=== PATIENT | female | born 1990 | race Caucasian/White ===

== ENCOUNTER 2019-11-05 11:03 | Inpatient (IN) ==
[2019-11-05 11:43] LABS: URINE SOURCE VOIDED
[2019-11-05 11:51] LABS: COLOR YELLOW; GLUCOSE URINE NEGATIVE (NEGATIVE); TURBIDITY URINE CLEAR (CLEAR)
[2019-11-05 11:52] LABS: BILIRUBIN URINE NEGATIVE (NEGATIVE); BLOOD URINE TRACE (NEGATIVE); KETONE URINE NEGATIVE (NEGATIVE); NITRITE URINE NEGATIVE (NEGATIVE); PH URINE 6.5; PROTEIN URINE NEGATIVE (NEGATIVE); UROBILINOGEN URINE NORMAL (NORMAL)
[2019-11-05 11:53] LABS: LEUKOCYTES URINE SMALL (NEGATIVE)
[2019-11-05] MEDS ORDERED: PEPCID PO ONE (12:43)
[2019-11-05] MEDS ORDERED: PEPCID IV PRN (12:43)
[2019-11-05] MEDS ORDERED: STADOL IV PRN (12:43)
[2019-11-05] MEDS ORDERED: KEFZOL 1 GM/D5W 1 GM/50 ML IVPB IV PRN (12:43)
[2019-11-05] MEDS ORDERED: PEPCID PO PRN (12:43)
[2019-11-05] MEDS ORDERED: TYLENOL PO PRN (12:43)
[2019-11-05] MEDS ORDERED: AMPICILLIN 2 GM in NS 100 ML IV ONE (12:43)
[2019-11-05] MEDS ORDERED: REGLAN PO ONE (12:43)
[2019-11-05] MEDS ORDERED: ZOFRAN IV PRN (12:43)
[2019-11-05] MEDS ORDERED: SODIUM CHLORIDE 0.9% INJ SCH (12:45)
[2019-11-05] MEDS ORDERED: PITOCIN 30 UNITS/NS 30 UNIT/500 ML IV.SOLN IV SCH ×2 (12:45→20:45)
[2019-11-05] MEDS: LR 1,000 ML IV SCH ×2 (13:23→17:42)
[2019-11-05 13:53] LABS: BASO# 0.02 X1000 (0.0-0.2); BASO% 0.3 % (0.0-0.8); EOS# 0.05 X1000 (0.0-0.7); EOS% 0.8 % (0.0-10.0); HEMATOCRIT 32.8 % (37.0-47.0); HEMOGLOBIN 10.3 g/dL (12.0-16.0); LYMPH# 0.87 X1000 (1.2-3.4); MCH 28.2 PG (27-31); MCHC 31.4 g/dL (33-37); MCV 89.9 FL (81-99); MONO# 0.58 X1000 (0.11-0.59); MONO% 9.3 % (1.7-9.3); MPV 10.3 FL (7.4-10.4); NEUT# 4.69 X1000 (1.4-6.5); NEUT% 75.6 % (42.2-75.2); PLT 271 X1000 (130-400); RBC 3.65 XMIL (4.2-5.4); WBC 6.21 X1000 (4.8-10.8)
[2019-11-05 14:57] LABS: UR AMPHETAMINES QUAL NONE DETECTED (NONE DETECT); UR BARBITUATES QUAL NONE DETECTED (NONE DETECT); UR BENZODIAZEPIN QUAL NONE DETECTED (NONE DETECT); UR CANNABINOIDS QUAL NONE DETECTED (NONE DETECT); UR COCAINE QUAL NONE DETECTED (NONE DETECT); UR METHADONE QUAL NONE DETECTED (NONE DETECT); UR OPIATES QUAL NONE DETECTED (NONE DETECT); UR OXYCODONE QUAL NONE DETECTED (NONE DETECT); UR PCP QUAL NONE DETECTED (NONE DETECT)
--- NOTE | 2019-11-05 15:20 | HISTORY AND PHYSICAL ---
HISTORY OF PRESENT ILLNESS: Ms. Lam is a 29-year-old -0-1-2 at 37 weeks and 6 days who presents to Labor and Delivery with complaint of leakage of fluid, ruptured membranes. The patient reports rupturing membranes at 10:30 this morning. Describes clear fluid. Reports good movement. Denies contractions or vaginal bleeding. Current uncomplicated. No complications noted. ALLERGIES: No known drug allergies. MEDICATIONS: vitamins. PAST MEDICAL HISTORY: None. PAST SURGICAL HISTORY: None. OBSTETRICAL HISTORY: G3, P2-0-1-2, 1 prior SAB, 2 prior full-term vaginal deliveries. No complications in prior vaginal deliveries, largest baby 7 pounds 11 ounces. [employer] HISTORY: LMP 02/12/2019. Denies STD exposure. Last Pap smear April 2018, negative for intraepithelial lesions or malignancies. Menarche age 11. SOCIAL HISTORY: Denies tobacco, alcohol, or drug use. FAMILY HISTORY: Father at age 71, stroke and myocardial infarct. PHYSICAL EXAMINATION: VITAL SIGNS: Temperature 97.3 degrees Fahrenheit, pulse rate 110, respiration rate 18, blood pressure 100/64, O2 saturation 95% on room air. Weight 176 pounds, height 5 feet 1 inch tall, body mass index 33.3 kg/m2. GENERAL: No acute distress. Alert, awake, oriented x3. CARDIOVASCULAR: Regular rate and rhythm. Positive S1, S2. RESPIRATORY: Clear to auscultation bilaterally. Negative rhonchi rales or wheezing. ABDOMEN: Gravid, nontender to palpation. Soft. EXTREMITIES: No calf tenderness. There is +1 edema. STERILE VAGINAL EXAM: 1 cm dilated, 70% effaced, -3 station. LABORATORY DATA: membrane rupture positive. GBS positive. ASSESSMENT: Ms. Neelam Lam is a 29-year-old G3, P2-0-1-2 at 37 weeks and 6 days who presents to Labor and Delivery with premature rupture of membrane, not in active labor. PLAN: 1. Admit to Labor and Delivery. 2. Obtain routine labor labs. 3. Continuous electronic monitoring. 4. IV ampicillin for GBS prophylaxis. 5. Patient counseled on risks, benefits, alternatives of procedure. Risks, not limited to infection, bleeding, vaginal laceration emergency delivery. The patient understands risks and agrees to procedure. 6. Estimated weight 7 and a half pounds. 7. Anticipate vaginal delivery.
[2019-11-05] MEDS ORDERED: FENTANYL-BUPIV-NS 500 MCG-0.125% 250 ML EPIDURAL PRN (17:39)
[2019-11-05] MEDS ORDERED: NAROPIN 0.2% INJ ONE (17:45)
[2019-11-05] MEDS ORDERED: FENTANYL IV ONE (17:45)
[2019-11-05] MEDS: AMPICILLIN 1 GM in NS 50 ML IV SCH (17:47)
[2019-11-05] MEDS ORDERED: PERI MEDS (DERMOPLAST/NUPERCAINAL/TUCKS) MISC PRN (20:41)
[2019-11-05] MEDS ORDERED: MINERAL OIL PO PRN (20:41)
[2019-11-05] MEDS ORDERED: BOOSTRIX VACCINE IM ONE (20:41)
[2019-11-05] MEDS ORDERED: ATARAX PO PRN (20:41)
[2019-11-05] MEDS ORDERED: MOTRIN PO PRN (20:41)
[2019-11-05] MEDS ORDERED: AMBIEN PO PRN (20:41)
[2019-11-05] MEDS ORDERED: HYDROXYZINE IM PRN (20:41)
[2019-11-05] MEDS ORDERED: NORCO-5 PO PRN (20:41)
[2019-11-05] MEDS ORDERED: M-M-R II VACCINE SUBQ ONE (20:41)
[2019-11-05] MEDS ORDERED: BENADRYL PO PRN (20:41)
[2019-11-05] MEDS ORDERED: CYTOTEC PO PRN (20:41)
[2019-11-05] MEDS ORDERED: BENADRYL IV PRN (20:41)
[2019-11-05] MEDS ORDERED: PITOCIN IM PRN (20:41)
[2019-11-05] MEDS ORDERED: XYLOCAINE-MPF 1% INJ PRN (20:41)
[2019-11-05] MEDS ORDERED: PITOCIN 20 UNITS/NS 20 UNITS/1,000 ML IV.SOLN IV SCH (20:45)
[2019-11-06] MEDS: AMPICILLIN 1 GM in NS 50 ML IV SCH ×2 (03:52→03:53)
[2019-11-06] MEDS: PERICOLACE PO SCH ×2 (03:53→23:27)
[2019-11-06 07:52] LABS: BASO# 0.01 X1000 (0.0-0.2); BASO% 0.1 % (0.0-0.8); HEMATOCRIT 31.7 % (37.0-47.0); HEMOGLOBIN 9.9 g/dL (12.0-16.0); LYMPH# 1.25 X1000 (1.2-3.4); LYMPH% 14.3 % (20.5-51.1); MCH 28.4 PG (27-31); MCHC 31.2 g/dL (33-37); MCV 90.8 FL (81-99); MONO# 0.49 X1000 (0.11-0.59); MONO% 5.6 % (1.7-9.3); MPV 10.5 FL (7.4-10.4); NEUT# 6.99 X1000 (1.4-6.5); PLT 231 X1000 (130-400); RBC 3.49 XMIL (4.2-5.4); RDW 11.9 % (11.5-14.5); WBC 8.74 X1000 (4.8-10.8)
--- NOTE | 2019-11-06 11:32 | OB/GYN PROGRESS NOTE ---
- Subjective G3 now P3 - Doing well, no c/o PPD #1 S/P . Ambulating and voiding without difficulty. NO CP or SOB. NO Lightheadedness or dizziness. Tolerating regular diet. Lochia minimal per patient. . OB Physical Exam Vital Signs - 8 hr 11/06/19 08:00 Temperature 97 F L Pulse Rate 89 Respiratory Rate 16 Blood Pressure 110/89 O2 Sat by Pulse Oximetry 99 - CONSTITUTIONAL General Appearance: appears well, alert, no apparent distress - RESPIRATORY Respiratory: lungs clear, normal breath sounds - CARDIOVASCULAR Cardiovascular: normal peripheral pulses, regular rate, rhythm - CHEST (BREASTS) Chest/Breast: deferred - GASTROINTESTINAL (ABDOMEN) Abdominal Exam: normal bowel sounds, non tender, soft, other (uterus firm below umbilicus.) - GENITOURINARY Female Genitalia/Pelvic Exam: external exam normal, other (Pad with minimal blood on it.) - MUSCULOSKELETAL Extremity: non-tender, no pedal edema, no calf tenderness - PSYCHIATRIC Psych/Mental Status: normal mood/affect, oriented x 3 Active Medications Generic Name Dose Route Start Last Admin Trade Name Freq PRN Reason Stop Dose Admin Acetaminophen 650 mg 11/05/19 12:43 Tylenol PO Q4-6H PRN PRN Headache Hydrocodone Bitart/Acetaminophen 1 each 11/05/19 20:41 [place]-5 PO Q3-4H PRN PRN Pain (1-6 on Pain Scale) Benzocaine 1 each 11/05/19 20:41 Nela Meds (Dermoplast/Nupercainal/Tucks) MISC 3-4XDAY PRN PRN episiotomy/hemorrhoids Butorphanol Tartrate 2 mg 11/05/19 12:43 Stadol IV PRN PRN Pain Diphenhydramine HCl 12.5 mg 11/05/19 20:41 Benadryl IV Q4H PRN PRN Itching Diphenhydramine HCl 25 mg 11/05/19 20:41 Benadryl PO Q4H PRN PRN Itching Famotidine 40 mg 11/05/19 12:43 Pepcid PO Q12H PRN PRN GI upset or indigestion Famotidine 20 mg 11/05/19 12:43 Pepcid IV Q12H PRN PRN GI upset or indigestion Hydroxyzine HCl 50 mg 11/05/19 20:41 Atarax PO Q3-4H PRN PRN Nausea Hydroxyzine HCl 50 mg 11/05/19 20:41 Hydroxyzine IM Q3-4H PRN PRN Nausea Ampicillin Sodium 1 gm/ Sodium 50 mls @ 100 mls/hr 11/05/19 16:50 11/06/19 03:53 Chloride IV Not Given Q4H ISAI Lactated Ringer's 1,000 mls @ 0 mls/hr 11/05/19 12:45 11/05/19 17:42 Lr IV 999 mls/hr .Q0M ISAI Administration As Directed Oxytocin/Sodium Chloride 30 unit in 500 mls @ 0 mls/hr 11/05/19 12:45 11/05/19 13:35 Pitocin 30 Units/Ns IV 2 mls/hr .Q0M ISAI Administration As Directed Cefazolin Sodium/Dextrose 1 gm in 50 mls @ 100 mls/hr 11/05/19 12:43 Kefzol 1 Gm/D5w IV ONCE PRN PRN SECTION Fentanyl/Bupivacaine/Sodium Chlor 250 mls @ 0 mls/hr 11/05/19 17:39 11/05/19 18:37 Bxzgfbts-Afjjt-Es 500 Mcg-0.125% EPIDURAL 12 mls/hr .Q0M PRN Administration As Directed Oxytocin/Sodium Chloride 30 unit in 500 mls @ 500 mls/hr 11/05/19 20:45 Pitocin 30 Units/Ns IV .Q1H ISAI Oxytocin/Sodium Chloride 20 units in 1,000 mls @ 0 mls/hr 11/05/19 20:45 Pitocin 20 Units/Ns IV .Q0M ISAI As Directed Ibuprofen 800 mg 11/05/19 20:41 Motrin PO Q8H PRN PRN cramping Lidocaine HCl 30 ml 11/05/19 20:41 Xylocaine-Mpf 1% INJ PRN PRN Perineal repair Mineral Oil 30 ml 11/05/19 20:41 Mineral Oil PO PRN PRN Perineal massage Misoprostol 800 microgm 11/05/19 20:41 Cytotec PO PRN PRN Severe bleeding Ondansetron HCl 4 mg 11/05/19 12:43 Zofran IV PRN PRN Nausea Oxytocin 20 unit 11/05/19 20:41 Pitocin IM PRN PRN Severe bleeding Senna/Docusate Sodium 1 each 11/05/19 21:00 11/06/19 03:53 Pericolace PO Not Given QHS ISAI Sodium Chloride 5 - 10 ml 11/05/19 12:45 Sodium Chloride 0.9% INJ DIRECTED ISAI Zolpidem Tartrate 10 mg 11/05/19 20:41 Ambien PO HS PRN PRN Sleep Laboratory Results - last 24 hr 11/05/19 11/05/19 11/05/19 11:05 11:05 11:30 WBC RBC Hgb Hct MCV MCH MCHC RDW Std Deviation Plt Count MPV Immature Gran % (Auto) Neut % (Auto) Lymph % (Auto) [place] % (Auto) Eos % (Auto) Baso % (Auto) Immature Gran # (Auto) Neut # (Auto) Lymph # (Auto) [place] # (Auto) Eos # (Auto) Baso # (Auto) Urine Source VOIDED Urine Color YELLOW Urine Turbidity CLEAR Urine pH 6.5 Ur Specific [place] 1.010 Urine Protein NEGATIVE Ur Glucose (Stick) NEGATIVE Ur Ketones (Stick) NEGATIVE Urine Blood TRACE A Urine Nitrite NEGATIVE Urine Bilirubin NEGATIVE Urobilinogen Dipstick NORMAL Urine Leukocytes SMALL A Membranes Rupture POSITIVE Urine Opiates Screen NONE DETECTED Ur Oxycodone Screen NONE DETECTED Ur Methadone, Qual NONE DETECTED Ur Barbiturates Screen NONE DETECTED Ur Phencyclidine Scrn NONE DETECTED Ur Amphetamines Screen NONE DETECTED U Benzodiazepines Scrn NONE DETECTED Urine Cocaine Screen NONE DETECTED U Cannabinoids Screen NONE DETECTED RPR 11/05/19 11/05/19 11/06/19 13:32 13:32 07:28 WBC 6.21 8.74 RBC 3.65 L 3.49 L Hgb 10.3 L 9.9 L Hct 32.8 L 31.7 L MCV 89.9 90.8 MCH 28.2 28.4 MCHC 31.4 L 31.2 L RDW Std Deviation 12.0 11.9 Plt Count 271 231 MPV 10.3 10.5 H Immature Gran % (Auto) 0.0 0.0 Neut % (Auto) 75.6 H 80.0 H Lymph % (Auto) 14.0 L 14.3 L [place] % (Auto) 9.3 5.6 Eos % (Auto) 0.8 0.0 Baso % (Auto) 0.3 0.1 Immature Gran # (Auto) 0.00 0.00 Neut # (Auto) 4.69 6.99 H Lymph # (Auto) 0.87 L 1.25 [place] # (Auto) 0.58 0.49 Eos # (Auto) 0.05 0.00 Baso # (Auto) 0.02 0.01 Urine Source Urine Color Urine Turbidity Urine pH Ur Specific [place] Urine Protein Ur Glucose (Stick) Ur Ketones (Stick) Urine Blood Urine Nitrite Urine Bilirubin Urobilinogen Dipstick Urine Leukocytes Membranes Rupture Urine Opiates Screen Ur Oxycodone Screen Ur Methadone, Qual Ur Barbiturates Screen Ur Phencyclidine Scrn Ur Amphetamines Screen U Benzodiazepines Scrn Urine Cocaine Screen U Cannabinoids Screen RPR NON-REACTIVE OB Assessment & Plan (1) Normal vaginal delivery Status: Acute Plan: 1. Doing well, no c/o. Continue PP care. 2. - going well, encouragement given 3. Anticipate D/C home tomorrow. 4. Rubella Immune status. Got flu vaccine for this season during . Last TDaP with last child 8 years ago. Will get prior to discharge. (2) Anemia, Status: Acute Plan: Asymptomatic. Hgb pre 10.3 and post 9.9. FeSO4 325 mg po q day ordered
[2019-11-06] MEDS: FERROUS SULFATE PO SCH (14:20)
[2019-11-07] MEDS: FERROUS SULFATE PO SCH (07:41)
--- NOTE | 2019-11-07 08:26 | OB/GYN PROGRESS NOTE ---
- Subjective G3 now P3 - Doing well, no c/o PPD #2 S/P . Ambulating and voiding without difficulty. NO CP or SOB. NO Lightheadedness or dizziness. Tolerating regular diet. Lochia minimal per patient. but started bottle supplementing. Encouragement for continued given. Ready to go home. OB Physical Exam Vital Signs - 8 hr 11/07/19 05:17 Temperature 98.0 F Pulse Rate 70 Respiratory Rate 16 Blood Pressure 109/69 O2 Sat by Pulse Oximetry 100 - CONSTITUTIONAL General Appearance: appears well, alert, no apparent distress - CHEST (BREASTS) Chest/Breast: deferred - GASTROINTESTINAL (ABDOMEN) Abdominal Exam: non tender, soft, other (Uterus firm below umbilicus) - GENITOURINARY Female Genitalia/Pelvic Exam: external exam normal, other (scant blood on pad) - PSYCHIATRIC Psych/Mental Status: normal mood/affect, oriented x 3 Active Medications Generic Name Dose Route Start Last Admin Trade Name Freq PRN Reason Stop Dose Admin Acetaminophen 650 mg 11/05/19 12:43 Tylenol PO Q4-6H PRN PRN Headache Hydrocodone Bitart/Acetaminophen 1 each 11/05/19 20:41 [place]-5 PO Q3-4H PRN PRN Pain (1-6 on Pain Scale) Benzocaine 1 each 11/05/19 20:41 Nela Meds (Dermoplast/Nupercainal/Tucks) MISC 3-4XDAY PRN PRN episiotomy/hemorrhoids Butorphanol Tartrate 2 mg 11/05/19 12:43 Stadol IV PRN PRN Pain Diphenhydramine HCl 12.5 mg 11/05/19 20:41 Benadryl IV Q4H PRN PRN Itching Diphenhydramine HCl 25 mg 11/05/19 20:41 Benadryl PO Q4H PRN PRN Itching Famotidine 40 mg 11/05/19 12:43 Pepcid PO Q12H PRN PRN GI upset or indigestion Famotidine 20 mg 11/05/19 12:43 Pepcid IV Q12H PRN PRN GI upset or indigestion Ferrous Sulfate 325 mg 11/06/19 11:45 11/07/19 07:41 Ferrous Sulfate PO 325 mg DAILY ISAI Administration Hydroxyzine HCl 50 mg 11/05/19 20:41 Atarax PO Q3-4H PRN PRN Nausea Hydroxyzine HCl 50 mg 11/05/19 20:41 Hydroxyzine IM Q3-4H PRN PRN Nausea Lactated Ringer's 1,000 mls @ 0 mls/hr 11/05/19 12:45 11/05/19 17:42 Lr IV 999 mls/hr .Q0M ISAI Administration As Directed Cefazolin Sodium/Dextrose 1 gm in 50 mls @ 100 mls/hr 11/05/19 12:43 Kefzol 1 Gm/D5w IV ONCE PRN PRN SECTION Oxytocin/Sodium Chloride 20 units in 1,000 mls @ 0 mls/hr 11/05/19 20:45 Pitocin 20 Units/Ns IV .Q0M ISAI As Directed Ibuprofen 800 mg 11/05/19 20:41 11/06/19 14:19 Motrin PO 800 mg Q8H PRN PRN Administration cramping Lidocaine HCl 30 ml 11/05/19 20:41 Xylocaine-Mpf 1% INJ PRN PRN Perineal repair Mineral Oil 30 ml 11/05/19 20:41 Mineral Oil PO PRN PRN Perineal massage Misoprostol 800 microgm 11/05/19 20:41 Cytotec PO PRN PRN Severe bleeding Ondansetron HCl 4 mg 11/05/19 12:43 Zofran IV PRN PRN Nausea Oxytocin 20 unit 11/05/19 20:41 Pitocin IM PRN PRN Severe bleeding Senna/Docusate Sodium 1 each 11/05/19 21:00 11/06/19 23:27 Pericolace PO Not Given QHS ISAI Sodium Chloride 5 - 10 ml 11/05/19 12:45 Sodium Chloride 0.9% INJ DIRECTED ISAI Zolpidem Tartrate 10 mg 11/05/19 20:41 Ambien PO HS PRN PRN Sleep Laboratory Results - last 24 hr 11/06/19 07:28 WBC 8.74 RBC 3.49 L Hgb 9.9 L Hct 31.7 L MCV 90.8 MCH 28.4 MCHC 31.2 L RDW Std Deviation 11.9 Plt Count 231 MPV 10.5 H Immature Gran % (Auto) 0.0 Neut % (Auto) 80.0 H Lymph % (Auto) 14.3 L [place] % (Auto) 5.6 Eos % (Auto) 0.0 Baso % (Auto) 0.1 Immature Gran # (Auto) 0.00 Neut # (Auto) 6.99 H Lymph # (Auto) 1.25 [place] # (Auto) 0.49 Eos # (Auto) 0.00 Baso # (Auto) 0.01 OB Assessment & Plan (1) Discharged to home Status: Acute Plan: Stable condition - Discharge to home. (2) Normal vaginal delivery Status: Acute Plan: DISCHARGE NOTE 1. Doing well, no c/o. Discharge to home. Stable and on regular diet. 2. Follow up 6 weeks post visit. control discussed and planning vasectomy - has appointment scheduled. Discussed condom use until SA shows no sperm present. 3. - started bottle/formula supplementing, encouragement given for continuation of but also stressed fed is best. 4. Discharge instructions discussed. Nothing in vagina for 6 weeks - no sex or tampon use. No heavy lifting - baby or less for 4-6 weeks with gradual increase in weight after that. No driving for 2 weeks or pain free encouraged. 5. Rx Motrin 600mg po q 6 hours prn use #30 no RF. Rx FeSO4 325 mg po q day #30 - 1 RF. Discussed that Motrin and Iron available OTC if cheaper. Continue PNV use daily - patient has at home. 6. Rubella Immune status. Got flu vaccine for this season during . Last TDaP with last child 8 years ago. Got prior to discharge. 7. Discussed PP depression risks and the signs and symptoms. At present patient without depression or anxiety complaints. IF issues or concerns to be s een sooner that 6 week PP check -- call or go to ER. States understanding. Discussed lochia can last for 6 weeks post delivery. If bleeding heavier than her heaviest period to call. States understanding. (3) Anemia, Status: Acute Plan: FeSO4 325 mg po q day - rx for home given
[2019-11-07 08:48] VITALS: BP 102/65
== END 2019-11-07 09:40 | disposition home or self-care (01) | DRG 807 ==
LOC: OPLD 11:03 → LD 11:05
PROVIDERS: ADMIT Obstetrics & Gynecology; ATTEND Obstetrics & Gynecology